=== PATIENT | female | born 1955 | race African-American/Black ===

== ENCOUNTER 2019-08-29 08:48 | Day surgery (SDC) | payer MEDICARE, BC ==
[~2019-08-29] VITALS: Ht 157.5 cm; Wt 57.6 kg
[2019-08-29 09:33] LABS: ANION GAP 12.3 mmol/L (8-16); CALCIUM 10.7 mg/dL (8.5-10.1); CARBON DIOXIDE 28.2 mmol/L (21.0-32.0); CREATININE - SERUM 4.1 mg/dL (0.6-1.3); POTASSIUM - SERUM 3.5 mmol/L (3.5-5.1)
[2019-08-29 09:35] LABS: BASOPHILS 1.4 % (0-2); EOSINOPHILS 3.4 % (0-7); HEMATOCRIT 33.2 % (36.0-48.0); HEMOGLOBIN 10.6 g/dL (12-16); IMMATURE GRANULOCYTES 0.2 % (0-5); LYMPHOCYTES 30.4 % (15-50); MCH 31.3 pg (26.0-34.0); MCHC 31.9 g/dL (31.0-37.0); MCV 97.9 fL (80.0-100.0); MEAN PLATELET VOLUME 8.4 fL (7.4-10.4); MONOCYTES 9.9 % (2-11); NEUTROPHILS 54.7 % (40-80); PLATELET COUNT 308 10x3/uL (130-400); RBC 3.39 10x6/uL (4.00-5.40); RDW 16.7 % (11.5-14.5); WBC 4.4 10x3/uL (4.8-10.8)
[2019-08-29 09:45] LABS: INR 1.1 (0.85-1.17); PROTIME 13.7 SECONDS (11.6-15.0)
[2019-08-29] MEDS ORDERED: HYDRALAZINE HCL50 MG PO (10:30)
[2019-08-29] MEDS ORDERED: CELEXA20 MG PO (10:30)
[2019-08-29] MEDS ORDERED: CARDIZEM30 MG PO (10:31)
[2019-08-29] MEDS ORDERED: COUMADIN5 MG PO (10:33)
[2019-08-29] MEDS ORDERED: COZAAR100 MG PO ×2 (10:33→10:35)
[2019-08-29] MEDS ORDERED: LASIX80 MG PO (10:33)
[2019-08-29] MEDS ORDERED: DONEPEZIL HCL10 MG PO (10:33)
[2019-08-29] MEDS ORDERED: LIPITOR10 MG PO (10:33)
[2019-08-29] MEDS ORDERED: RENVELA800 MG PO (10:34)
[2019-08-29] MEDS ORDERED: CARTIA XT240 MG PO (10:35)
[2019-08-29] MEDS ORDERED: BAYER CHEWABLE81 MG PO (10:35)
[2019-08-29] MEDS ORDERED: STOOL SOFTENER240 MG PO (10:36)
[2019-08-29] MEDS ORDERED: FLUTICASONE PRO16 GM NASAL (10:37)
[2019-08-29] MEDS ORDERED: MIRALAX17 GM PO (10:37)
[2019-08-29] MEDS ORDERED: CENTRUM SILVER1 EAC3 PO (10:37)
[2019-08-29] MEDS ORDERED: TUMS X-STR300 MG PO (10:38)
[2019-08-29] MEDS ORDERED: ACETAMINOPHEN325 MG PO (10:39)
[2019-08-29] MEDS ORDERED: SENSIPAR90 MG PO (10:41)
[2019-08-29 11:02] VITALS: Ht 157.5 cm; Wt 57.6 kg
--- NOTE | 2019-08-29 13:45 | NUR ---
PTS BP TRENDING UP. NOTIFIED ANESTHESIA AND OBTAINED ORDER FOR LABETALOL WILL CONTINUE TO MONITER.
--- NOTE | 2019-08-29 16:56 | NUR ---
1520 SPOKE WITH TONEY CLEMENTS APN REGARDING DR RASHEED DISCHARGE INSTRUCTIONS. TONEY STATES THAT PT CAN RESUME WARFARIN ON 08/30/19. TONEY REQUESTED THAT PT TAKE A COPY OF DR RASHEED DISCHARGE INSTRUCTIONS WITH HER TO DIAYSIS TOMORROW FOR DRESSING AND SUTURE INSTRUCTIONS. A FOLLOWUP APPOINTMENT WAS MADE FOR A FISTULOGRAM AT [facility] FOR NOVEMBER 28, 2019 AND THIS INFORMATION GIVEN TO PT AND HER FAMILY. 1552 IV DC'D. CATHETER TIP INTACT. NO BLEEDING AT SITE. BANDAID APPLIED. 1600 PT UP TO BATHROOM AND VOIDED PRIOR TO DISCHARGE HOME
--- NOTE | 2019-09-04 16:17 | OP ---
PATIENT NAME: BAINCA WOODWARD MEDICAL RECORD: [id number] :53 LOCATION:[facility] ADMISSION DATE: SURGEON: LANDRY VAZQUEZ MD DATE OF OPERATION: 08/29/2019 REFERRED BY: Dr. Sandra Streeter and Dr. Amezcua. PREOPERATIVE DIAGNOSES: 1. 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 2. End-stage renal disease, on dialysis and dependence on renal dialysis. POSTOPERATIVE DIAGNOSES: 1. 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 2. End-stage renal disease, on dialysis and dependence on renal dialysis. OPERATION PERFORMED: Left arm AV fistulogram and balloon angioplasty of 60% stenosis, recurrent stenosis in the cephalic arch followed by open Youngblood type banding of the JA segment to 5mm diameter. SURGEON: Landry Vazquez MD ANESTHESIA: General with LMA per HAND TIER. PREOPERATIVE NOTE: Ms. Woodward is a 64-year-old -[place] female from [facility]. She has end-stage renal disease and is on chronic hemodialysis at the [facility] in [place]. She has been dialyzing for some time successfully now with a left arm brachiocephalic AV fistula. That fistula is large and aneurysmal, high flow and she has had a problem with recurring cephalic arch stenosis. She is brought to the hospital today with plans to perform a fistulogram and angioplasty if needed and a restrictive procedure like a Youngblood banding procedure to reduce flow and hopefully reduce shear forces and reduce frequency of stricture formation in the cephalic arch. DESCRIPTION OF PROCEDURE: Under anesthesia in supine position, the patient was prepped and draped in sterile manner. The fistula was accessed with micropuncture needle and guidewire and this led up to placement of a 7-Malagasy introducer. A Glidewire was advanced across the fistula and into the central veins and contrast injection demonstrated no evidence of significant stenosis of the fistula within the arm. There was 60% to 70%, recurrent stenosis in the cephalic arch close to the confluence with the axillary vein. This was dilated with a 9 mm diameter angioplasty balloon with full effacement and 0% residual on subsequent contrast study. There was no other abnormality identified and the 7-Malagasy sheath was removed and hemostasis obtained there with a pursestring 4-0 Prolene suture and a period of direct pressure. I then made an incision on the medial aspect of the fistula along JA segment and then raised the skin flap and dissected bluntly circumferentially around the vein and placed a 2-0 Prolene ligature there and tied it over a fully inflated 5 mm diameter angioplasty balloon held up against the JA segment. This was repeated twice and each time the ligatures kept sliding together so that really there is just one point of reduction of the luminal diameter to 5 mm. Flow OPERATIVE REPORT [id number] WOODWARDOLGA LIDIANatanael stanley. The thrill was reduced over the upper arm, but there is still ample flow to maintain patency. The wound was infiltrated with 0.25% Marcaine without epinephrine and closed with interrupted 3-0 Vicryl and running intracuticular 4-0 Monocryl or Stratafix and was sealed with Dermabond glue and dressed with Maxorb Ag, Tegaderm, and Cavilon skin prep. She was awakened and in stable condition taken to the recovery room. Blood loss was trivial and replaced. Sponges, instruments, and needles were accounted for. No drain was used and no surgical specimen submitted for histopathology. PLAN: The patient will be discharged today to return to her home and continue her usual dialysis schedule, diet, medications, and activities. The dialysis unit personnel should remove the 4-0 Prolene suture from the fistula when they dialyze her on Wednesday, and either this coming Wednesday or coming Wednesday, they should remove the dressing from over the banded segment near the arterial anastomosis. If that wound is healing well, there is no need for her to travel back to [place] for followup visit in my office. I do think she should be scheduled for a followup fistulogram at [facility] in 3 months. TRANSINT:[id number] Voice Confirmation ID: [id number] DOCUMENT ID: [id number] cc: Mahnaz Jo in [facility] ARIELLA. LANDRY VAZQUEZ MD at 1617 CC: SANDRA STREETER III MD [id number] DICTATION DATE: 08/29/19 1334 EDUCATIONAL ADVISOR: 08/29/192002 [facility] 08/29/19 [facility] [address] [place] [address]
== END 2019-08-29 16:10 | disposition home or self-care (01) ==
LOC: D.OPS 08:48
PROVIDERS: ATTEND Internal Medicine Nephrology
DX: N18.6 End stage renal disease (principal); Z99.2 Dependence on renal dialysis; I77.1 Stricture of artery; I12.0 Hypertensive chronic kidney disease with stage 5 chronic kidney disease or end stage renal disease; E11.22 Type 2 diabetes mellitus with diabetic chronic kidney disease; D53.9 Nutritional anemia, unspecified; E21.3 Hyperparathyroidism, unspecified; I48.91 Unspecified atrial fibrillation